=== PATIENT | male | born 1980 | race Two or more races ===

== ENCOUNTER 2021-04-15 22:08 | Emergency (ER) | payer SELFPAY ==
[~2021-04-15] VITALS: Ht 172.7 cm; Wt 80.4 kg
[2021-04-15 22:30] VITALS: BP 113/78
--- NOTE | 2021-04-15 23:46 | NUR ---
FISCAL SPECIALIST: PT. TO ROOM FROM LOBBY AT THIS TIME.
== END 2021-04-16 00:14 | disposition home or self-care (01) ==
LOC: ED 22:38
DX: S22.32XA Fracture of one rib, left side, initial encounter for closed fracture (principal); F17.200 Nicotine dependence, unspecified, uncomplicated; W01.0XXA Fall on same level from slipping, tripping and stumbling without subsequent striking against object, initial encounter; Y93.89 Activity, other specified; Y92.410 Unspecified street and highway as the place of occurrence of the external cause; Y99.8 Other external cause status
CPT/HCPCS: 99283